=== PATIENT | female | born 1955 | race Two or more races ===

== ENCOUNTER → 2020-09-13 | Outpatient (CLI) | payer OTHER | END | disposition home or self-care (01) | LOC: SONOGRAMA 07:58 | PROVIDERS: ATTEND Pathology Anatomic Pathology & Clinical Pathology | DX: E04.2 Nontoxic multinodular goiter (principal) ==

== ENCOUNTER 2022-12-18 08:40 | Outpatient (CLI) | payer OTHER | END 2022-12-18 08:41 | disposition home or self-care (01) | LOC: LAB 08:40 | PROVIDERS: ATTEND Orthopaedic Surgery | DX: M85.9 Disorder of bone density and structure, unspecified (principal); E83.42 Hypomagnesemia; E56.1 Deficiency of vitamin K; E88.89 Other specified metabolic disorders; M81.8 Other osteoporosis without current pathological fracture ==

== ENCOUNTER 2023-02-17 07:20 | Outpatient (CLI) | payer OTHER | END 2023-02-17 07:22 | disposition home or self-care (01) | LOC: LAB 07:20 | PROVIDERS: ATTEND Orthopaedic Surgery | DX: D64.89 Other specified anemias (principal); M06.4 Inflammatory polyarthropathy; E55.9 Vitamin D deficiency, unspecified; E53.9 Vitamin B deficiency, unspecified; S72.002A Fracture of unspecified part of neck of left femur, initial encounter for closed fracture; R76.8 Other specified abnormal immunological findings in serum; R16.0 Hepatomegaly, not elsewhere classified; E03.9 Hypothyroidism, unspecified ==

== ENCOUNTER 2023-02-17 08:23 | Outpatient (CLI) | payer OTHER | END 2023-02-17 08:35 | disposition home or self-care (01) | LOC: RAD 08:23 | PROVIDERS: ATTEND Orthopaedic Surgery | DX: M79.652 Pain in left thigh (principal); M25.562 Pain in left knee; M25.561 Pain in right knee ==

== ENCOUNTER 2023-03-25 11:02 | Outpatient (CLI) | payer OTHER | END 2023-03-25 11:03 | disposition home or self-care (01) | LOC: RAD 11:02 | PROVIDERS: ATTEND Orthopaedic Surgery | DX: M25.562 Pain in left knee (principal); M17.12 Unilateral primary osteoarthritis, left knee; M24.562 Contracture, left knee ==

== ENCOUNTER 2023-04-17 14:03 | Inpatient (IN) | payer OTHER ==
[~2023-04-17] VITALS: Ht 162.6 cm; Wt 65.8 kg
[2023-04-17] MEDS ORDERED: BUFFERED ASPIR325 M3 PO (14:31)
[2023-04-17] MEDS ORDERED: PERCOCET 10-321 EACH PO (14:31)
[2023-04-24] MEDS ORDERED: ZYVOX100 MG/5 M PO (12:04)
[2023-04-24] MEDS ORDERED: PERCOCET 5-3251 EACH PO (12:04)
== END 2023-04-24 18:05 | disposition home or self-care (01) | DRG 603 ==
LOC: ER 14:03 → SURG 16:29
PROVIDERS: General Practice; Internal Medicine; Internal Medicine Infectious Disease; ADMIT Orthopaedic Surgery; ATTEND Orthopaedic Surgery
DX: L03.116 Cellulitis of left lower limb (principal); D64.9 Anemia, unspecified; D51.3 Other dietary vitamin B12 deficiency anemia; D53.0 Protein deficiency anemia; E03.9 Hypothyroidism, unspecified; Z20.822 Contact with and (suspected) exposure to COVID-19